=== PATIENT | female | born 1990 | race Caucasian/White ===

== ENCOUNTER 2016-09-21 08:24 | Day surgery (SDC) | payer BC, OTHER ==
[~2016-09-21 08:24] MED LIST: Lactated Ringers 1,000 ML IV SCH; Sodium Chloride 0.9% 10 ML Syringe FLUSH PRN
--- NOTE | 2016-09-21 09:50 | PCM.PN ---
- General Info Date of Service: 09/21/16 - Review of Systems Systems Review Comment:: 25 y/o female with history of post prandial RUQ abdominal pain. US negative but Kinevac symptomatic. EGD planned to R/O any other pathology for GI symptoms. She is medically stable to proceed. She agrees to proceed accepting risks. - Patient Data Vitals - most recent: Last Vital Signs Temp 98.4 F 09/21/16 08:43 Pulse 94 09/21/16 08:43 Resp 15 09/21/16 08:43 BP 100/65 09/21/16 08:43 Pulse Ox 98 09/21/16 08:43 Weight - most recent: 178 lb Med Orders - Current: Current Medications Lactated Ringer's (Ringers, Lactated) 1,000 mls @ 125 mls/hr IV ASDIRECTED DIONISIO Last Admin: 09/21/16 09:21 Dose: 125 mls/hr Sodium Chloride (Saline Flush) 10 ml FLUSH ASDIRECTED PRN PRN Reason: Keep Vein Open - Problem List Review Problem List Initiated/Reviewed/Updated: Yes - My Orders Last 24 Hours: My Active Orders 09/21/16 08:15 Patient Status [ADT] Routine Verify Patient Consent Obtain [RC] ASDIRECTED Lactated Ringers [Ringers, Lactated] 1,000 ml IV ASDIRECTED Sodium Chloride 0.9% [Saline Flush] 10 ml FLUSH ASDIRECTED PRN Peripheral IV Insertion Adult [OM.PC] Routine - Assessment Assessment:: Upper Abdominal Pain - Plan Plan:: EGD
[2016-09-21] MEDS ORDERED: Midazolam 1 MG/ML 2 ML SDV IV ONE (10:00)
[2016-09-21] MEDS ORDERED: Propofol 200 MG/20 ML SDV IV ONE (10:00)
[2016-09-21] MEDS ORDERED: Lidocaine 2% 100 MG/5 ML Syringe IVPUSH ONE (10:00)
--- NOTE | 2016-09-21 10:18 | PCM.OPNOTE ---
- General Post-Op/Procedure Note Date of Surgery/Procedure: 09/21/16 Operative Procedure(s): EGD with Biopsy Findings: Normal Upper Endoscopy Pre Op Diagnosis: Upper Abdominal Pain Post-Op Diagnosis: Normal Upper Endoscopy Anesthesia Technique: MAC Primary Surgeon: Edilberto Blake Pathology: Biopsies of Duodenum and Gastric Antrum Output, Urine Amount: 0 EBL in mLs: 2 Complications: None Condition: Good
[2016-09-21 12:01] VITALS: BP 109/71
--- NOTE | 2016-09-21 14:20 | OR ---
DATE OF OPERATION: 09/21/2016 SURGEON: Edilberto Blake MD PREOPERATIVE DIAGNOSIS: Upper abdominal pain. POSTOPERATIVE DIAGNOSIS: Normal upper endoscopy. INDICATIONS FOR SURGERY: This 25-year-old female has been having symptoms of upper abdominal pain postprandially. Endoscopic evaluation is planned to evaluate for reasons for her upper abdominal pain. FINDINGS: The structures examined today appeared normal. These included the esophagus and stomach as well as the upper half of the duodenum. No visible signs of inflammation, ulceration, or other lesions were seen. PROCEDURE IN DETAIL: The patient was taken to the procedure room. She was given intravenous sedation. Her throat was topically anesthetized. The esophagus was intubated under direct visualization with the Olympus gastroscope. This was carefully advanced through the esophagus, stomach, and into the duodenum where the third portion was reached. Random biopsies of the duodenum were taken even though the structures of the duodenum appeared normal. The scope was withdrawn back into the stomach where a full examination including retroflexed examination of the fundus was carried out. Biopsies of the antrum were taken to rule out H. pylori. The GE junction was carefully examined and then the scope was removed allowing reexamination of the esophagus. With no sign of any complicating process, and after full examination of the upper GI tract have been carried out, the scope was removed and the patient was taken from the procedure room in satisfactory condition. ESTIMATED BLOOD LOSS: 2 mL. COMPLICATIONS: None. PROGNOSIS: Good. /[id number] MAURI/KRYSTIAN
== END 2016-09-21 11:56 | disposition home or self-care (01) ==
LOC: FB.SDS 08:24
PROVIDERS: ATTEND Surgery
DX: K29.80 Duodenitis without bleeding (principal); Z88.8 Allergy status to other drugs, medicaments and biological substances; Z98.890 Other specified postprocedural states; F17.210 Nicotine dependence, cigarettes, uncomplicated; Z79.899 Other long term (current) drug therapy
CPT/HCPCS: 43239; 88305; 88342; J2250; J2704; J7120

== ENCOUNTER 2016-09-25 13:25 | Day surgery (SDC) | payer BC, OTHER ==
[~2016-09-25 13:25] MED LIST changes: +ceFAZolin 1 GM in Sodium Chloride 0.9% 50 ML IV ONE
[2016-09-25] MEDS ORDERED: ceFAZolin 1 GM in Sodium Chloride 0.9% 50 ML IV ONE (15:00)
--- NOTE | 2016-09-25 15:39 | PCM.PN ---
- General Info Date of Service: 09/25/16 - Review of Systems Systems Review Comment:: 25 y/o female with history of RUQ pain and nausea as well as a symptomatically positive Kinevac test here for Cholecystectomy. She is medically stable to proceed with no recent changes to her health status. I have discussed carefully and repeatedly the proposed cholecystectomy with the patient. Risk have been reviewed and she agrees to proceed accepting these risks. I have also carefully discussed that this procedure may not completely relieve all of her GI symptoms. She appears to understand and agrees to proceed with cholecystectomy today. - Patient Data Vitals - most recent: Last Vital Signs Temp 98.2 F 09/25/16 14:45 Pulse 69 09/25/16 14:45 Resp 16 09/25/16 14:45 BP 100/64 09/25/16 14:45 Pulse Ox 99 09/25/16 14:45 Weight - most recent: 141 lb Lab Results last 24 hrs: Laboratory Results - last 24 hr 09/25/16 Range/Units 13:54 Urine HCG, Qual Negative (NEGATIVE) Med Orders - Current: Current Medications Lactated Ringer's (Ringers, Lactated) 1,000 mls @ 125 mls/hr IV ASDIRECTED [facility] Last Admin: 09/25/16 15:19 Dose: 125 mls/hr Sodium Chloride (Saline Flush) 10 ml FLUSH ASDIRECTED PRN PRN Reason: Keep Vein Open Discontinued Medications Cefazolin Sodium 1 gm/ Sodium (Chloride) 50 mls @ 200 mls/hr IV ONETIME ONE Stop: 09/25/16 15:14 Last Admin: 09/25/16 15:20 Dose: 200 mls/hr - Problem List Review Problem List Initiated/Reviewed/Updated: Yes - My Orders Last 24 Hours: My Active Orders 09/24/16 15:47 Patient to Empty Bladder [RC] ASDIRECTED Sodium Chloride 0.9% [Saline Flush] 10 ml FLUSH ASDIRECTED PRN Resuscitation Status Routine 09/24/16 16:00 Lactated Ringers [Ringers, Lactated] 1,000 ml IV ASDIRECTED 09/25/16 13:30 Patient Status [ADT] Routine Verify Patient Consent Obtain [RC] ASDIRECTED Peripheral IV Insertion Adult [OM.PC] Routine Sequential Compression Device [OM.PC] Routine 09/25/16 Breakfast Nothing Per Oral Diet [DIET] - Assessment Assessment:: Symptomatic Gallbladder disease - Plan Plan:: Cholecystectomy
[2016-09-25] MEDS ORDERED: fentaNYL 100 MCG/2 ML SDV IV ONE (15:45)
[2016-09-25] MEDS ORDERED: diphenhydrAMINE 50 MG/ML SDV IV ONE (15:45)
[2016-09-25] MEDS ORDERED: Edrophonium Chloride 150 MG/15 ML MDV IVPUSH ONE (15:45)
[2016-09-25] MEDS ORDERED: Propofol 200 MG/20 ML SDV IV ONE (15:45)
[2016-09-25] MEDS ORDERED: Midazolam 1 MG/ML 2 ML SDV IV ONE (15:45)
[2016-09-25] MEDS ORDERED: Ketorolac 30 MG/ML SDV IVPUSH ONE (15:45)
[2016-09-25] MEDS ORDERED: Rocuronium 50 MG/5 ML Vial IV ONE (15:45)
[2016-09-25] MEDS ORDERED: Succinylcholine/Normal Saline 200 MG/10 ML Syringe IV ONE (15:45)
[2016-09-25] MEDS ORDERED: Lidocaine 2% 100 MG/5 ML Syringe IVPUSH ONE (15:45)
[2016-09-25] MEDS ORDERED: Dexamethasone 4 MG/ML 5 ML MDV IVPUSH ONE (15:45)
[2016-09-25] MEDS ORDERED: Lactated Ringers 1,000 ML IV ONE (15:45)
[2016-09-25] MEDS ORDERED: Ondansetron 4 MG/2 ML SDV IVPUSH ONE (15:45)
[2016-09-25] MEDS ORDERED: Bupivacaine 0.5%/EPINEPHrine 1:200,000 50 ML MDV INJECT ONE (16:11)
[2016-09-25] MEDS ORDERED: fentaNYL 100 MCG/2 ML SDV IVPUSH PRN (17:09)
[2016-09-25] MEDS ORDERED: Morphine 2 MG/ML Syringe ONE (17:13)
[2016-09-25] MEDS ORDERED: Lactated Ringers 1,000 ML IV SCH (17:15)
--- NOTE | 2016-09-25 17:15 | PCM.OPNOTE ---
- General Post-Op/Procedure Note Date of Surgery/Procedure: 09/25/16 Operative Procedure(s): Laparoscopic Cholecystectomy Findings: Normal appearing gallbladder, liver and visualized organs Pre Op Diagnosis: Symptomatic Gallbladder Disease Post-Op Diagnosis: Same Anesthesia Technique: General ET Tube Primary Surgeon: Edilberto Blake Pathology: Gallbladder Output, Urine Amount: 0 EBL in mLs: 10 Complications: None Condition: Good
[2016-09-25] MEDS: Morphine 2 MG/ML Syringe IVPUSH PRN ×2 (17:25→17:42)
[2016-09-25 22:32] VITALS: BP 116/72
--- NOTE | 2016-09-26 02:14 | OR ---
DATE OF OPERATION: 09/25/2016 SURGEON: Edilberto Blake MD PREOPERATIVE DIAGNOSIS: Symptomatic gallbladder disease. POSTOPERATIVE DIAGNOSIS: Symptomatic gallbladder disease. OPERATION PERFORMED: Laparoscopic cholecystectomy. INDICATIONS FOR SURGERY: This 25-year-old female, who has been having symptoms of nausea and postprandial right upper quadrant abdominal pain. She had reproduction of her symptoms with Kinevac test and is felt to have gallbladder disease and comes for cholecystectomy as her symptoms are unrelenting. FINDINGS: The patient's gallbladder appeared grossly normal. There were a few small adhesions to its undersurface. These were easily cleared. The patient's gallbladder, liver, and other visualized organs appeared normal. PROCEDURE IN DETAIL: The patient was taken to the operating room. She was given general endotracheal anesthesia, and the abdomen was sterilely prepped and draped. An infraumbilical stab wound incision was made. Through this, a Veress needle was inserted and pneumoperitoneum via this needle to a pressure of 15 mmHg was achieved with carbon dioxide. The Veress needle was then replaced with a 12 mm trocar into which the 5 mm 30-degree laparoscopic camera was inserted. Under direct visualization, 5 mm trocars were placed in the subxiphoid region and then 2 areas of the right abdomen, all trocar sites were infiltrated with Marcaine prior to incision. Intra-abdominal inspection was carried out and attention was turned to the gallbladder. It was secured with grasping forceps and retracted superiorly and anteriorly. The peritoneal covering and fatty tissue overlying the cystic duct and cystic artery was carefully cleared. The cystic artery was doubly clipped and divided and then after milking the cystic duct and once it had been clearly and positively identified, it was doubly clipped and divided near the gallbladder with great care being used to avoid any possible injury or compromise to the common bile duct. The gallbladder was then dissected free from the undersurface of the liver using the cautery device. Once the gallbladder is free, it was extracted without difficulty through the umbilical trocar site. Reinspection of the gallbladder bed showed no sign of bleeding or any other complicating process. The trocars were then removed under direct visualization and the pneumoperitoneum was evacuated. The fascia of the umbilical trocar site was closed with a [id number] 0 Vicryl suture. Wounds were irrigated with Betadine and saline solution. Skin incisions were approximated with interrupted 4-0 Vicryl in a subcuticular stitch, Steri-Strips and Benzoin. Antibiotic ointment and sterile dressings were placed. The patient was then awakened, extubated, and taken from the operating room in satisfactory condition. ESTIMATED BLOOD LOSS: 10 mL. COMPLICATIONS: None. PROGNOSIS: Good. /[id number] MAURI/KRYSTIAN
== END 2016-09-25 20:25 | disposition home or self-care (01) ==
LOC: FB.SDS 13:25 → FB.MS 17:55 → FB.SDS 20:25
PROVIDERS: ATTEND Surgery
DX: K81.1 Chronic cholecystitis (principal)
CPT/HCPCS: 47562; 81025; 88304; J0690; J1100; J1200; J1885; J2250; J2270; J2405; J2704; J3010; J7050; J7120; A9270-GY

== ENCOUNTER 2020-02-20 12:57 | Emergency (ER) | payer MEDICAID ==
[2020-02-20] MEDS ORDERED: Ondansetron 4 MG/2 ML SDV IVPUSH ONE (13:41)
[2020-02-20] MEDS ORDERED: Meclizine 25 MG Tab PO ONE (13:41)
[2020-02-20] MEDS ORDERED: Sodium Chloride 0.9% 1,000 ML IV SCH (13:45)
--- NOTE | 2020-02-20 13:48 | EDM.PDOC ---
ED HPI GENERAL MEDICAL PROBLEM - General Stated Complaint: covid griceldas Time Seen by Provider: 02/20/20 13:00 Source of Information: Reports: Patient History Limitations: Reports: No Limitations - History of Present Illness INITIAL COMMENTS - FREE TEXT/NARRATIVE: Patient presented to the ED because of weakness, fatigue chills, dizziness, and near syncopal episode yesterday. There is no fever, cough/cold symptoms. There is nausea but no vomiting or diarrhea. - Related Data Allergies Allergy/AdvReac Type Severity Reaction Status Date / Time NOVACAINE Allergy Shortness Uncoded 09/25/16 14:51 of Breath Home Meds: Home Meds ondansetron HCL [Zofran] 4 mg PO 6XDAY PRN #30 tablet 10/11/15 [Rx] Acetaminophen [Tylenol] 325 mg PO Q6H PRN 09/18/16 [History] Ibuprofen [Advil] 200 mg PO Q6H PRN 09/18/16 [History] Levonorgestrel/Ethin.estradiol [Annie-28 Tablet] 1 each PO ASDIRECTED 09/18/16 [History] Hydrocodone/Acetaminophen [Hydrocodon-Acetaminophen 5-325] 1 - 2 tab PO Q4HR PRN #24 tablet 09/25/16 [Rx] Meclizine [Antivert] 25 mg PO Q6H PRN #15 tab 02/20/20 [Rx] Past Medical History - Past Health History Medical/Surgical History: Denies Medical/Surgical History Gastrointestinal History: Reports: Other (See Below) Other 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: Musculoskeletal History: Reports: Back Pain, Chronic Other Musculoskeletal History: old l ankle fx Psychiatric History: Reports: Anxiety, Depression Hematologic History: Reports: Other (See Below) Other Hematologic History: usually has low hgb Dermatologic History: Reports: Other (See Below) Other Dermatologic History: GETS WILLIAN ON ABD WHEN WEARS BELT - Infectious Disease History Infectious Disease History: Reports: Chicken Pox - Past Surgical History GI Surgical History: Reports: Hernia, Abdominal Social & Family History - Family History Family Medical History: No Pertinent Family History OBGYN: Reports: , Other (See Below) Other OBGYN Family History: emergency Oncologic: Reports: Other (See Below) Other Oncologic Family History: grandfather had cancer - Caffeine Use Caffeine Use: Reports: None ED ROS GENERAL - Review of Systems Review Of Systems: See Below Constitutional: Reports: Chills, Malaise, Weakness HEENT: Reports: No Symptoms Respiratory: Reports: No Symptoms Cardiovascular: Reports: No Symptoms Endocrine: Reports: No Symptoms GI/Abdominal: Reports: Nausea Musculoskeletal: Reports: No Symptoms Skin: Reports: No Symptoms Neurological: Reports: Dizziness Psychiatric: Reports: No Symptoms Hematologic/Lymphatic: Reports: No Symptoms ED EXAM, GENERAL - Physical Exam Exam: See Below Exam Limited By: No Limitations General Appearance: Alert, No Apparent Distress Ears: Normal External Exam, Normal Canal Nose: Normal Inspection, Normal Mucosa Throat/Mouth: Normal Inspection, Normal Lips Head: Atraumatic, Normocephalic Neck: Normal Inspection, Supple, Non-Tender, Full Range of Motion Respiratory/Chest: No Respiratory Distress, Lungs Clear, Normal Breath Sounds Cardiovascular: Normal Peripheral Pulses, Regular Rate, Rhythm, No Edema GI/Abdominal: Normal Bowel Sounds, Soft, Non-Tender Back Exam: Normal Inspection, Full Range of Motion Extremities: Normal Inspection, Normal Range of Motion, Non-Tender Neurological: Alert, Oriented, CN II-XII Intact Psychiatric: Normal Affect Skin Exam: Warm, Intact, Normal Color Course - Vital Signs Text/Narrative:: Labs/EKG/CXR was reviewed with patient NS 1 L bolus Zofran 4 mg IV Meclizine 50 mg po x1 Last Recorded V/S: Last Vital Signs Temp 36.8 C 02/20/20 12:57 Pulse 92 02/20/20 12:57 Resp 17 02/20/20 12:57 BP 127/83 02/20/20 12:57 Pulse Ox 100 02/20/20 12:57 - Orders/Labs/Meds Orders: Active Orders 24 hr Category Date Time Status EKG Documentation Completion [RC] ASDIRECTED Care 02/20/20 13:11 Active Chest 1V Frontal [CR] Stat Exams 02/20/20 13:10 Taken Sodium Chloride 0.9% [Normal Saline] 1,000 ml Med 02/20/20 13:45 Active IV ASDIRECTED Isolation [COMM] Routine Oth 02/20/20 13:13 Ordered EKG 12 Lead [EK] Routine Ther 02/20/20 13:10 Ordered Medication Orders Sodium Chloride (Normal Saline) 1,000 mls @ 999 mls/hr IV ASDIRECTED DIONISIO Last Admin: 02/20/20 14:01 Dose: 999 mls/hr Documented by: [email or web address] Labs: Laboratory Tests 02/20/20 02/20/20 02/20/20 Range/Units 13:25 13:25 13:25 WBC 7.2 (3.0-10.3) x10-3/uL RBC 4.27 (3.60-5.20) x10(6)uL Hgb 13.5 (11.4-15.5) g/dL Hct 40.5 (34.2-48.2) % MCV 94.9 (76.7-100.5) fL MCH 31.6 (23.9-33.9) pg MCHC 33.3 (31.9-34.8) g/dL RDW 12.9 (12.3-16.5) % Plt Count 197 (151-488) x10(3)uL MPV 8.7 (7.1-12.4) fL Neut % (Auto) 59.8 (30.8-76.2) % Lymph % (Auto) 31.5 (18.4-52.1) % [place] % (Auto) 5.2 (4.4-15.7) % Eos % (Auto) 3.0 (0.6-8.1) % Baso % (Auto) 0.5 (0.2-1.5) % Neut # (Auto) 4.3 (1.5-6.3) x10-3/uL Lymph # (Auto) 2.3 (1.0-4.4) x10-3/uL [place] # (Auto) 0.4 (0.3-1.0) x10-3/uL Eos # (Auto) 0.2 (0.0-0.8) x10-3/uL Baso # (Auto) 0.0 (0.0-0.1) x10-3/uL Sodium 140 (135-145) mmol/L Potassium 3.9 (3.5-5.3) mmol/L Chloride 104 (100-110) mmol/L Carbon Dioxide 26 (21-32) mmol/L BUN 8 (7-18) mg/dL Creatinine 0.5 L (0.55-1.02) mg/dL Est Cr Clr Drug Dosing 165.58 mL/min Estimated GFR (MDRD) > 60 (>60) BUN/Creatinine Ratio 16.0 (9-20) Glucose 86 (80-116) mg/dL Calcium 8.8 (8.6-10.2) mg/dL Total Bilirubin 0.6 (0.1-1.3) mg/dL AST 12 (5-25) IU/L ALT 16 (12-36) U/L Alkaline Phosphatase 46 L (56-112) IU/L Troponin I 5.4 (4.0-60.3) pg/mL Total Protein 7.2 (6.0-8.0) g/dL Albumin 4.1 (3.5-5.2) g/dL Globulin 3.1 g/dL Albumin/Globulin Ratio 1.3 HCG, Quant (<5) mIU/mL SARS-CoV-2 RNA (PAT) (NEGATIVE) 02/20/20 02/20/20 Range/Units 13:25 13:28 WBC (3.0-10.3) x10-3/uL RBC (3.60-5.20) x10(6)uL Hgb (11.4-15.5) g/dL Hct (34.2-48.2) % MCV (76.7-100.5) fL MCH (23.9-33.9) pg MCHC (31.9-34.8) g/dL RDW (12.3-16.5) % Plt Count (151-488) x10(3)uL MPV (7.1-12.4) fL Neut % (Auto) (30.8-76.2) % Lymph % (Auto) (18.4-52.1) % [place] % (Auto) (4.4-15.7) % Eos % (Auto) (0.6-8.1) % Baso % (Auto) (0.2-1.5) % Neut # (Auto) (1.5-6.3) x10-3/uL Lymph # (Auto) (1.0-4.4) x10-3/uL [place] # (Auto) (0.3-1.0) x10-3/uL Eos # (Auto) (0.0-0.8) x10-3/uL Baso # (Auto) (0.0-0.1) x10-3/uL Sodium (135-145) mmol/L Potassium (3.5-5.3) mmol/L Chloride (100-110) mmol/L Carbon Dioxide (21-32) mmol/L BUN (7-18) mg/dL Creatinine (0.55-1.02) mg/dL Est Cr Clr Drug Dosing mL/min Estimated GFR (MDRD) (>60) BUN/Creatinine Ratio (9-20) Glucose (80-116) mg/dL Calcium (8.6-10.2) mg/dL Total Bilirubin (0.1-1.3) mg/dL AST (5-25) IU/L ALT (12-36) U/L Alkaline Phosphatase (56-112) IU/L Troponin I (4.0-60.3) pg/mL Total Protein (6.0-8.0) g/dL Albumin (3.5-5.2) g/dL Globulin g/dL Albumin/Globulin Ratio HCG, Quant < 5 L (<5) mIU/mL SARS-CoV-2 RNA (PAT) Negative (NEGATIVE) Meds: Medications Generic Name Dose Route Start Last Admin Trade Name Freq PRN Reason Stop Dose Admin Sodium Chloride 1,000 mls @ 999 mls/hr 02/20/20 13:45 02/20/20 14:01 Normal Saline IV 999 mls/hr ASDIRECTED DIONISIO Administration Discontinued Medications Generic Name Dose Route Start Last Admin Trade Name Freq PRN Reason Stop Dose Admin Meclizine HCl 50 mg 02/20/20 13:41 02/20/20 13:58 Antivert PO 02/20/20 13:42 50 mg ONETIME ONE Administration Ondansetron HCl 4 mg 02/20/20 13:41 02/20/20 13:58 Zofran IVPUSH 02/20/20 13:42 4 mg ONETIME ONE Administration Departure - Departure Time of Disposition: 15:00 Disposition: Home, Self-Care 01 Condition: Good Clinical Impression: Acute viral syndrome, BPV (benign positional vertigo) - Discharge Information Prescriptions: Meclizine [Antivert] 25 mg PO Q6H PRN #15 tab PRN Reason: vertigo Instructions: Viral Respiratory Infection, [id number], Benign Positional Vertigo Additional Instructions: Please read discharge instructions on viral illness and benign positional vertigo Increase oral fluids Take meclizine 25 mg every 6 hours as needed for dizziness Follow up as needed Sepsis Event Note (ED) - Focused Exam Vital Signs: Vital Signs Temp Pulse Resp BP Pulse Ox 02/20/20 12:57 36.8 C 92 17 127/83 100 - My Orders Last 24 Hours: My Active Orders 02/20/20 13:10 Chest 1V Frontal [CR] Stat EKG 12 Lead [EK] Routine 02/20/20 13:11 EKG Documentation Completion [RC] ASDIRECTED 02/20/20 13:13 Isolation [COMM] Routine 02/20/20 13:45 Sodium Chloride 0.9% [Normal Saline] 1,000 ml IV ASDIRECTED - Assessment/Plan Last 24 Hours: My Active Orders 02/20/20 13:10 Chest 1V Frontal [CR] Stat EKG 12 Lead [EK] Routine 02/20/20 13:11 EKG Documentation Completion [RC] ASDIRECTED 02/20/20 13:13 Isolation [COMM] Routine 02/20/20 13:45 Sodium Chloride 0.9% [Normal Saline] 1,000 ml IV ASDIRECTED
--- NOTE | 2020-02-20 15:53 | CR ---
INDICATION: Weakness. CHEST ONE VIEW: Single AP upright view of the chest was obtained portable 02/20/20 - no comparison. The heart, mediastinum and bony thorax were unremarkable. A definite active infiltrate or effusion was not identified. IMPRESSION: No acute process. No definite active disease. MTDD
[2020-02-20 17:26] VITALS: BP 102/61; PULSE 81
== END 2020-02-20 15:02 | disposition home or self-care (01) ==
LOC: FB.ED 12:57
DX: B34.9 Viral infection, unspecified (principal); H81.10 Benign paroxysmal vertigo, unspecified ear; Z88.4 Allergy status to anesthetic agent; Z20.828 Contact with and (suspected) exposure to other viral communicable diseases
CPT/HCPCS: 36415; 71045; 80053; 84484; 84702; 85025; 87804; 87804-59; 93005; 96374; 99285-25; A9270-GY; J2405; J7030; U0002

== ENCOUNTER 2020-06-15 14:02 | Emergency (ER) | payer MEDICAID ==
[2020-06-15] MEDS ORDERED: cefTRIAXone 1 GM Vial IM ONE (14:25)
--- NOTE | 2020-06-15 14:30 | EDM.PDOC ---
ED HPI GENERAL MEDICAL PROBLEM - General Chief Complaint: ENT Problem Stated Complaint: tooth ache Time Seen by Provider: 06/15/20 14:20 Source of Information: Reports: Patient History Limitations: Reports: No Limitations - History of Present Illness INITIAL COMMENTS - FREE TEXT/NARRATIVE: states she has had dental problems for a long time was seen in the clinic last week for a flare up, was placed on Clindamycin Seen by dentist and told infection has to clear before she gets teeth extracted has no fever , no sore throat , no sinus pressure , no headache Currently on 5th day of clindamycin Onset: Gradual Onset Date: 06/07/20 Duration: Week(s):, Waxing/Waning Location: Reports: Other (oral cavity) Improves with: Reports: Cold Therapy Worsens with: Reports: Eating Context: Reports: Other (chroncin dental problem) Treatments DIRECTOR EMERGENCY DEPARTMENT: Reports: Cold Therapy, NSAIDS, Other Medication(s) Left Tooth/Teeth Pain Score (Numeric/FACES): 12 - Related Data Allergies Allergy/AdvReac Type Severity Reaction Status Date / Time NOVACAINE Allergy Shortness Uncoded 09/25/16 14:51 of Breath Home Meds: Home Meds ondansetron HCL [Zofran] 4 mg PO 6XDAY PRN #30 tablet 10/11/15 [Rx] Acetaminophen [Tylenol] 325 mg PO Q6H PRN 09/18/16 [History] Ibuprofen [Advil] 200 mg PO Q6H PRN 09/18/16 [History] Levonorgestrel/Ethin.estradiol [Annie-28 Tablet] 1 each PO ASDIRECTED 09/18/16 [History] Hydrocodone/Acetaminophen [Hydrocodon-Acetaminophen 5-325] 1 - 2 tab PO Q4HR PRN #24 tablet 09/25/16 [Rx] Meclizine [Antivert] 25 mg PO Q6H PRN #15 tab 02/20/20 [Rx] Chlorhexidine Gluconate 0.12% [Peridex 0.12% Rinse] 15 ml MM TID #473 ml 06/15/20 [Rx] Doxycycline [Vibra-Tabs] 100 mg PO Q12HR #20 tab 06/15/20 [Rx] Meloxicam 7.5 mg PO BID #30 tablet 06/15/20 [Rx] Past Medical History - Past Health History Medical/Surgical History: Denies Medical/Surgical History Gastrointestinal History: Reports: Irritable Bowel Syndrome, Other (See Below) Other 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: Musculoskeletal History: Reports: Back Pain, Chronic Other Musculoskeletal History: old l ankle fx Psychiatric History: Reports: Anxiety, Depression Hematologic History: Reports: Other (See Below) Other Hematologic History: usually has low hgb Dermatologic History: Reports: Other (See Below) Other Dermatologic History: GETS WILLIAN ON ABD WHEN WEARS BELT - Infectious Disease History Infectious Disease History: Reports: Chicken Pox - Past Surgical History HEENT Surgical History: Reports: Oral Surgery GI Surgical History: Reports: Hernia, Abdominal Musculoskeletal Surgical History: Reports: Other (See Below) Other Musculoskeletal Surgeries/Procedures:: hernia at 7 months Social & Family History - Family History Family Medical History: No Pertinent Family History OBGYN: Reports: , Other (See Below) Other OBGYN Family History: emergency Oncologic: Reports: Other (See Below) Other Oncologic Family History: grandfather had cancer - Caffeine Use Caffeine Use: Reports: None ED ROS ENT - Review of Systems Review Of Systems: See Below Constitutional: Reports: No Symptoms. Denies: Fever, Chills, Malaise, Weight Loss HEENT: Reports: Other (upper teeth ache) Respiratory: Reports: No Symptoms Cardiovascular: Reports: No Symptoms Endocrine: Reports: No Symptoms GI/Abdominal: Reports: No Symptoms Musculoskeletal: Reports: No Symptoms Skin: Reports: No Symptoms Neurological: Reports: No Symptoms Psychiatric: Reports: No Symptoms Hematologic/Lymphatic: Reports: No Symptoms Immunologic: Reports: No Symptoms ED EXAM, ENT - Physical Exam Exam: See Below Exam Limited By: No Limitations General Appearance: Alert, WD/WN, No Apparent Distress Eye Exam: Bilateral Eye: EOMI Ears: Normal TMs Nose: Normal Inspection Mouth/Throat: Dental Pain, Dental Tenderness, Gum Swelling. No: Dental Trauma, Hoarse Voice, Lip Swelling, Muffled Voice, Pharyngeal Erythema, Throat Pain, Tonsillar Erythema, Tonsillar Exudates, Trismus Head: Atraumatic, Normocephalic Neck: Supple, Non-Tender Respiratory/Chest: No Respiratory Distress, Lungs Clear, Normal Breath Sounds Cardiovascular: Regular Rate, Rhythm GI/Abdominal: Soft, Non-Tender Back: Normal Inspection Extremities: Normal Inspection. No: No Pedal Edema Neurological: Alert, Oriented, CN II-XII Intact, Normal Cognition Psychiatric: Normal Affect, Normal Mood Skin: Warm, Dry, Intact Lymphatic: No Adenopathy Course - Vital Signs Last Recorded V/S: Last Vital Signs Temp Pulse 107 H 06/15/20 14:10 Resp 16 06/15/20 14:10 BP 117/79 06/15/20 14:10 Pulse Ox 100 06/15/20 14:10 - Orders/Labs/Meds Meds: Medications Discontinued Medications Generic Name Dose Route Start Last Admin Trade Name Whit PRN Reason Stop Dose Admin Ceftriaxone Sodium 1 gm 06/15/20 14:25 06/15/20 14:40 Ceftriaxone 1 Gm Vial IM 06/15/20 14:26 1 gm ONETIME ONE Administration Departure - Departure Time of Disposition: 15:12 Disposition: Home, Self-Care 01 Condition: Fair Clinical Impression: Dental caries, Dental caries extending into dentin, Toothache - Discharge Information *PRESCRIPTION DRUG MONITORING PROGRAM REVIEWED*: Not Applicable *COPY OF PRESCRIPTION DRUG MONITORING REPORT IN PATIENT JEAN CLAUDE: Not Applicable Prescriptions: Meloxicam 7.5 mg PO BID #30 tablet Chlorhexidine Gluconate 0.12% [Peridex 0.12% Rinse] 15 ml MM TID #473 ml Doxycycline [Vibra-Tabs] 100 mg PO Q12HR #20 tab Instructions: Ceftriaxone Injection, Dental Abscess Referrals: Cynthia Amaya NP [Primary Care Provider] - Forms: ED Department Discharge Additional Instructions: 1) Rinse mouth with warm salt water 2) Keep appointment with dentist 3) Make appointment to see your PCP 4) Call with any concerns Sepsis Event Note (ED) - Focused Exam Vital Signs: Vital Signs Pulse Resp BP Pulse Ox 06/15/20 14:10 107 H 16 117/79 100
[2020-06-15 14:49] VITALS: BP 117/79; PULSE 107
== END 2020-06-15 15:12 | disposition home or self-care (01) ==
LOC: FB.ED 14:02
DX: K02.9 Dental caries, unspecified (principal); Z88.4 Allergy status to anesthetic agent; Z79.899 Other long term (current) drug therapy
CPT/HCPCS: 96372; 99282; J0696